=== PATIENT | female | born 1985 | race Two or more races ===

== ENCOUNTER 2025-06-06 03:03 | Emergency (ER) | payer OTHER ==
[~2025-06-06] VITALS: Ht 172.7 cm; Wt 117.9 kg
[2025-06-06] MEDS ORDERED: KETOROLAC TROMETHAMINE INJ 30 MG/ML VIAL ONE ×2 (03:29→05:32)
[2025-06-06] MEDS ORDERED: hydrALAZINE HCL IV 20 MG VIAL ONE (03:29)
[2025-06-06] MEDS: KETOROLAC TROMETHAMINE INJ 30 MG/ML VIAL IV ONE (03:30)
[2025-06-06 03:41] LABS: PLATELET COUNT (AUTO) 223 K/uL (150-450); RED BLOOD CELL COUNT(AUTO) 5.12 MIL/uL (4.0-5.2); RED CELL DISTRIBUTION WIDTH 17.9 % (11.5-15.0); WHITE BLOOD COUNT (AUTO) 5.2 K/uL (4.3-11.0)
[2025-06-06 03:48] LABS: CALCIUM, SERUM 8.4 mg/dL (8.5-10.1); CREATININE 0.9 mg/dL (0.6-1.3); SODIUM SERUM 140 mmol/L (136-145); UREA NITROGEN, BLOOD 9 mg/dL (7-18)
[2025-06-06] MEDS: hydrALAZINE HCL IV 20 MG VIAL IV ONE (03:50)
[2025-06-06 03:54] LABS: ASPARTATE AMINOTRANSFERASE 59 U/L (15-37); INR 0.98 (0.91-1.10); TOTAL PROTEIN, SERUM 7.2 g/dL (6.4-8.2)
[2025-06-06 04:08] LABS: EOSINOPHILS % (MANUAL) 1 % (0-4); LYMPHOCYTES % (MANUAL) 26 % (16-48); MONOCYTES % (MANUAL) 2 % (0-11.0); NEUTROPHILS % (MANUAL) 70 (42-76)
[2025-06-06 04:34] LABS: APPEARANCE,URINE SLIGHTLY CLOUDY (CLEAR); BLOOD, URINE NEGATIVE Ery/uL (NEGATIVE); LEUKOCYTE ESTERASE ,URINE NEGATIVE (NEGATIVE); NITRITE, URINE NEGATIVE (NEGATIVE); UGLUCOSE NEGATIVE (NEGATIVE)
[2025-06-06 04:35] LABS: PREGNANCY TEST URINE QUAL NEGATIVE (NEGATIVE)
[2025-06-06 04:43] LABS: ADD URINE CULTURE YES; SQUAMOUS EPITHELIAL CELL,UR Moderate /HPF (None Seen)
[2025-06-06 06:22] VITALS: BP 148/88; TEMP 98.8; O2SAT 99
== END 2025-06-06 06:23 | disposition home or self-care (01) ==
LOC: ER 03:07
DX: I16.0 Hypertensive urgency (principal); I10 Essential (primary) hypertension; E66.9 Obesity, unspecified; Z68.30 Body mass index [BMI] 30.0-30.9, adult; Z60.2 Problems related to living alone
CPT/HCPCS: 99285; 96374; 70450; 71045; 96375; 93005; 85027; 80048; 87086; 80076; 84703; 85007; 81001; 36415; 84484; 85730; J1885; J0360